=== PATIENT | female | born 1940 | race Caucasian/White ===

== ENCOUNTER 2016-10-13 06:25 | Day surgery (SDC) | payer MEDICARE, BC ==
[2016-10-13] MEDS ORDERED: Sodium Tetradecyl Sulfate 1% 20 MG/2 ML SDV ONE (06:57)
[2016-10-13] MEDS ORDERED: Sodium Chloride 0.9% 10 ML ONE (06:57)
[2016-10-13] MEDS ORDERED: Lidocaine 1% with EPINEPHrine 1:100,000 50 ML MDV ONE (06:57)
[2016-10-13] MEDS ORDERED: Sodium Chloride 0.9% 1,000 ML IV SCH (07:00)
[2016-10-13] MEDS: Lidocaine 1% w/EPINEPHrine 50 ML, Sodium Bicarbonate 5 MEQ in Sodium Chloride 0.9% 950 ML INJECT SCH ×2 (07:45→08:30)
[2016-10-13] MEDS ORDERED: Midazolam 1 MG/ML 2 ML SDV ONE (07:56)
[2016-10-13] MEDS ORDERED: Propofol 200 MG/20 ML SDV ONE ×3 (07:56→08:51)
[2016-10-13] MEDS ORDERED: fentaNYL 100 MCG/2 ML SDV ONE (07:56)
[2016-10-13] MEDS ORDERED: Lactated Ringers 1,000 ML ONE (08:36)
[2016-10-13 10:25] VITALS: BP 121/72
--- NOTE | 2016-10-13 14:20 | OR ---
DATE OF PROCEDURE: 10/13/2016 PROCEDURE: 1. Radiofrequency ablation of left lesser saphenous vein. 2. Radiofrequency ablation of right greater saphenous vein. 3. Sclerotherapy, left leg, multiple. 4. Sclerotherapy, right leg, multiple. COMPLICATIONS: None. SUPERMARKET MANAGER: None. ANESTHESIA: MAC/local. RISKS: Risks, benefits, alternatives, and limitations, including, but not limited to infection, bleeding, and DVT formation were explained to the patient and they wished to proceed. PROCEDURE IN DETAIL: The patient was placed in supine position. The left LSV was addressed first. This was accessed approximately 3 cm superior to the ankle. This was accessed using a 21-gauge needle exchanged via a 35,000 wire, then exchanged for a 7-Urdu sheath after single yokasta was created in the skin and then anesthetized with lidocaine. The sheath was advanced to greater than 4 cm from the deep junction. Tumescent fluid was injected in 1 cm jacket around this and verified a second and third time. Direct even pressure was performed while the probe was deployed x2 proximally and distally, and x1 in all other segments. The sheath and device were removed. Dermabond was applied. The radiofrequency ablation was then performed on the right greater saphenous vein using same manner, same fashion, same technique, using the same equipment in the same sequence. This was also verified a second and third time. The sheath and device were then removed. Direct pressure was also held with Dermabond being applied. Of note, this was also verified second and third time ensuring correct fluid injection. Sclerotherapy was then performed left and right legs using 0.33% sodium tetradecyl. This was always drawn back to ensure intravascular injection only and no more than 2 mL injected in one location, 3 on the right and 4 on the left. Dressings were applied. The patient tolerated the procedure well. Lan Webb MD /[id number]
== END 2016-10-13 10:28 | disposition home or self-care (01) ==
LOC: JP.SDS 06:25
PROVIDERS: ATTEND Surgery
DX: I87.2 Venous insufficiency (chronic) (peripheral) (principal); K21.9 Gastro-esophageal reflux disease without esophagitis; E78.5 Hyperlipidemia, unspecified; E66.9 Obesity, unspecified; I83.813 Varicose veins of bilateral lower extremities with pain
CPT/HCPCS: 36471; 36475; J1642; J2250; J2704; J3010; J7040; J7050; J7120; J3490

== ENCOUNTER 2019-07-04 08:11 | Day surgery (SDC) | payer MEDICARE, BC ==
[2019-07-04] MEDS ORDERED: Propofol 200 MG/20 ML SDV ONE (08:42)
[2019-07-04] MEDS ORDERED: fentaNYL 100 MCG/2 ML SDV ONE (08:42)
[2019-07-04] MEDS ORDERED: Midazolam 1 MG/ML 2 ML SDV ONE (08:42)
[2019-07-04] MEDS ORDERED: Dextrose 5%-Lactated Ringers 1,000 ML IV SCH (08:45)
[2019-07-04 10:51] VITALS: BP 109/71; PULSE 60
--- NOTE | 2019-07-14 15:34 | OR ---
DATE OF PROCEDURE: 07/04/2019 SURGEON: Lui Cardoza MD PREOPERATIVE DIAGNOSIS: Longstanding gastroesophageal reflux disease. 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 OPERATIVE PROCEDURE: Esophagogastroduodenoscopy with: 1. Biopsy of esophagogastric junction for histologic evaluation. 2. Biopsies of antrum for CLOtest. ANESTHESIA: IV sedation. INDICATIONS FOR PROCEDURE: This is a 78-year-old female with longstanding gastroesophageal reflux disease. She is presently on Protonix 40 mg daily and with this has fairly good symptom control. Due to the longstanding nature of her reflux, she is referred for an upper endoscopy to rule out problems such as Mcdonald esophagus. Potential risks including bleeding and perforation were discussed, and the patient wishes to proceed. DETAILS OF PROCEDURE: The patient was taken to the operating room and placed in a left lateral decubitus position. IV sedation was administered after which the upper GI endoscope was passed orally through the length of esophagus into the stomach with retroflexion view of the fundus, thereafter through the pyloric channel, then into the proximal duodenum. Findings included normal hypopharynx, larynx, upper esophageal sphincter, and esophageal body. At the EG junction, there was roughly a 3 to 4 cm hiatal hernia. There was some upward extension of the esophagogastric junction mucosal line above the upper gastric folds suggestive of some Mcdonald esophagus, but otherwise, there was very minimal in the way of gross inflammation in and around the esophagogastric junction. No stricturing, plaquing, or other signs of neoplasia were seen within the stomach and duodenal exams. No additional abnormalities were noted. Biopsies were then obtained from the antrum to establish the patient's H. pylori status. Following this, multiple biopsies were obtained from the esophagogastric junction, sent for histologic evaluation. Minimal bleeding from biopsy sites was seen and the procedure concluded. The patient was taken to the recovery room in satisfactory condition. Assuming, no Mcdonald esophagus was seen on the biopsies, the patient can be maintained on routine followup. Should there be Mcdonald esophagus present, we would inform the patient regarding the appropriate interval for followup endoscopy. Lui Cardoza MD /[id number]
== END 2019-07-04 11:02 | disposition home or self-care (01) ==
LOC: JP.SDS 08:11
PROVIDERS: ATTEND Surgery
DX: K21.0 Gastro-esophageal reflux disease with esophagitis (principal); K44.9 Diaphragmatic hernia without obstruction or gangrene; E78.5 Hyperlipidemia, unspecified; Z79.899 Other long term (current) drug therapy
CPT/HCPCS: 43239; 87081; 88305; J2250; J2704; J3010; J7121

== ENCOUNTER 2021-11-24 09:35 | Emergency (ER) | payer MEDICARE, BC ==
[2021-11-24 10:34] VITALS: BP 159/95; PULSE 74
[2021-11-24 11:16] LABS: ESTIMATED GFR 74 mL/min (>60)
== END 2021-11-24 13:00 | disposition home or self-care (01) ==
LOC: JP.ED 09:35
DX: S00.83XA Contusion of other part of head, initial encounter (principal); J32.3 Chronic sphenoidal sinusitis; E86.0 Dehydration; E78.00 Pure hypercholesterolemia, unspecified; K21.9 Gastro-esophageal reflux disease without esophagitis; Z88.1 Allergy status to other antibiotic agents; Z88.8 Allergy status to other drugs, medicaments and biological substances; Z79.899 Other long term (current) drug therapy; W18.09XA Striking against other object with subsequent fall, initial encounter; Y92.009 Unspecified place in unspecified non-institutional (private) residence as the place of occurrence of the external cause
CPT/HCPCS: 36415; 70450; 70450-26; 70486; 70486-26; 80053; 85025; 99282; 99284-25

== ENCOUNTER 2023-12-06 21:02 | Emergency (ER) | payer MEDICARE, BC ==
[2023-12-06 21:11] VITALS: BP 198/102; PULSE 88
[2023-12-06 22:29] LABS: BASOPHILS ABSOLUTE AUTO 0.03 K/uL (0.00-0.10); BASOPHILS PERCENT AUTO 0.4 % (0.1-1.3); EOSINOPHILS PERCENT AUTO 0.1 % (0.0-5.4); HEMATOCRIT 37.5 % (34.3-46.0); IMMATURE GRAN ABSOLUTE AUTO 0.04 K/uL (0.00-0.23); IMMATURE GRAN PERCENT AUTO 0.6 % (0.0-0.7); LYMPHOCYTES ABSOLUTE AUTO 0.91 K/uL (0.8-3.3); LYMPHOCYTES PERCENT AUTO 13.4 % (11.4-47.7); MEAN CORPUSCULAR HEMOGLOBIN 31.3 pg (31.6-35.5); MEAN CORPUSCULAR HGB CONC 34.7 g/dL (31.6-35.5); MEAN CORPUSCULAR VOLUME 90.1 fL (81.4-99.0); MONOCYTES ABSOLUTE AUTO 0.38 K/uL (0.20-0.90); MONOCYTES PERCENT AUTO 5.6 % (3.3-12.6); NEUTROPHILS ABSOLUTE AUTO 5.41 K/uL (1.0-7.6); NEUTROPHILS PERCENT AUTO 79.9 % (40.0-78.1); PLATELET COUNT,PLT 173 K/uL (130-375); RED BLOOD CELL COUNT 4.16 M/uL (3.77-5.24); WHITE BLOOD CELL COUNT,WBC 6.8 K/uL (3.2-11.0)
[2023-12-06] MEDS: Ondansetron 4 MG/2 ML SDV IVPUSH ONE (22:36)
[2023-12-06] MEDS: Ketorolac 15 MG/ML SDV IVPUSH ONE (22:36)
[2023-12-06] MEDS: cefTRIAXone 2 GM in Sodium Chloride 0.9% 50 ML IV ONE (22:40)
[2023-12-06] MEDS: Sodium Chloride 0.9% 1,000 ML IV SCH (22:40)
[2023-12-06 22:42] LABS: EOSINOPHILS ABSOLUTE AUTO 0.01 K/uL (0.00-0.40)
[2023-12-06 22:51] LABS: A/G RATIO 0.9 (1.2-2.2); ALANINE AMINOTRANSFERASE,ALT 64 U/L (12-78); ALBUMIN 3.4 g/dL (3.4-5.0); ALKALINE PHOSPHATASE 110 U/L (46-116); ASPARTATE AMNIOTRANSFERASE,AST 59 U/L (15-37); BILIRUBIN TOTAL 0.4 mg/dL (0.2-1.0); BLOOD UREA NITROGEN,BUN 20 mg/dL (7-18); CALCIUM 9.5 mg/dL (8.5-10.1); CARBON DIOXIDE,CO2 24 mmol/L (21-32); CHLORIDE,CL 98 mmol/L (100-108); CREATININE 0.9 mg/dL (0.6-1.0); EST CRCL DRUG DOSING (CG) 45.12 mL/min; ESTIMATED GFR 64 mL/min (>60); GLUCOSE RANDOM 122 mg/dL (74-106); POTASSIUM,K 3.9 mmol/L (3.6-5.2); PROTEIN TOTAL,TP 7.4 g/dL (6.4-8.2); SODIUM,NA 132 mmol/L (140-148)
[2023-12-06 22:53] LABS: ANION GAP 13.9 mmol/L (5.0-14.0)
[2023-12-06 23:31] LABS: LYME AB IgG Negative (Negative); LYME AB IgM Negative (Negative)
[2023-12-10 15:23] LABS: ANAPLASMA PHAGOCYTOPHILUM PCR Detected; BABESIA MICROTI BY PCR Not Detected; BABESIA SPECIES BY PCR Not Detected; EHRLICHIA CHAFFEENSIS BY PCR Not Detected; EHRLICHIA EWINGII/CANIS BY PCR Not Detected; EHRLICHIA MURIS-LIKE BY PCR Not Detected
== END 2023-12-07 00:05 | disposition home or self-care (01) ==
LOC: JP.ED 21:02
DX: A69.20 Lyme disease, unspecified (principal); E78.00 Pure hypercholesterolemia, unspecified; Z88.1 Allergy status to other antibiotic agents; Z88.8 Allergy status to other drugs, medicaments and biological substances; Z79.51 Long term (current) use of inhaled steroids; Z79.899 Other long term (current) drug therapy
CPT/HCPCS: 36415; 80053; 85025; 86618; 87468; 87469; 87484; 87798; 96365; 96375; 99283; 99284-25; J0696; J1885; J2405; J3490; J7030

== ENCOUNTER 2025-01-23 22:27 | Emergency (ER) | payer MEDICARE, BC ==
[2025-01-23 22:42] VITALS: BP 162/78; PULSE 87
[2025-01-23 22:52] LABS: BASOPHILS ABSOLUTE AUTO 0.05 K/uL (0.00-0.10); BASOPHILS PERCENT AUTO 0.3 % (0.1-1.3); EOSINOPHILS ABSOLUTE AUTO 0.24 K/uL (0.00-0.40); EOSINOPHILS PERCENT AUTO 1.7 % (0.0-5.4); IMMATURE GRAN ABSOLUTE AUTO 0.07 K/uL (0.00-0.23); IMMATURE GRAN PERCENT AUTO 0.5 % (0.0-0.7); LYMPHOCYTES ABSOLUTE AUTO 3.74 K/uL (0.8-3.3); LYMPHOCYTES PERCENT AUTO 25.7 % (11.4-47.7); MONOCYTES ABSOLUTE AUTO 1.03 K/uL (0.20-0.90); MONOCYTES PERCENT AUTO 7.1 % (3.3-12.6); NEUTROPHILS ABSOLUTE AUTO 9.41 K/uL (1.0-7.6); NEUTROPHILS PERCENT AUTO 64.7 % (40.0-78.1); PLATELET COUNT,PLT 294 K/uL (130-375); RED BLOOD CELL COUNT 4.04 M/uL (3.77-5.24); WHITE BLOOD CELL COUNT,WBC 14.5 K/uL (3.2-11.0)
[2025-01-23 23:12] LABS: A/G RATIO 0.8 (1.2-2.2); ALANINE AMINOTRANSFERASE,ALT 30 U/L (12-78); ASPARTATE AMNIOTRANSFERASE,AST 19 U/L (15-37); BILIRUBIN TOTAL 0.4 mg/dL (0.2-1.0); BLOOD UREA NITROGEN,BUN 20 mg/dL (7-18); CARBON DIOXIDE,CO2 26 mmol/L (21-32); CHLORIDE,CL 100 mmol/L (100-108); CREATININE 0.9 mg/dL (0.6-1.0); EST CRCL DRUG DOSING (CG) 44.34 mL/min; ESTIMATED GFR 63 mL/min (>60); GLUCOSE RANDOM 110 mg/dL (74-106); POTASSIUM,K 3.3 mmol/L (3.6-5.2); PROTEIN TOTAL,TP 7.1 g/dL (6.4-8.2); SODIUM,NA 138 mmol/L (140-148)
== END 2025-01-24 00:49 | disposition home or self-care (01) ==
LOC: JP.ED 22:27
DX: A04.72 Enterocolitis due to Clostridium difficile, not specified as recurrent (principal); E78.00 Pure hypercholesterolemia, unspecified; Z88.1 Allergy status to other antibiotic agents; Z88.8 Allergy status to other drugs, medicaments and biological substances; Z79.899 Other long term (current) drug therapy; Z79.51 Long term (current) use of inhaled steroids
CPT/HCPCS: 36415; 80053; 85025; 86140; 87493; 99284